=== PATIENT | female | born 1960 | race Caucasian/White ===

== ENCOUNTER 2019-05-27 09:20 | Emergency (ER) | payer BC ==
[2019-05-27] MEDS ORDERED: IBUPROFEN 600 MG TABLET (FP) PO ONE ×2 (09:31→09:49)
--- NOTE | 2019-05-27 09:38 | PDOC ---
History of Present Illness - General History Source: Patient Exam Limitations: No Limitations - History of Present Illness Initial Comments: 05/27/19 09:32 58y F with PMH of Osteoporosis, PTSD presenting to ED with complaints of R foot pain s/p fall last night. Patient says she was going down the steps when she missed the last step and injured the R foot and fell. Denies LOC or hitting her head. She states that she has pain when bearing weight on the R foot and with inversion. She has broken the same foot before when she fell down steps approx. 20y ago. She denies numbness/tingling, weakness, back pain, hip pain, knee pain , neck pain, chest pain, sob, n/v. 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 PMH: see hpi PSH: Meds: Proventil, estrogen, Cymbalta Allergies: nkda <Manuela Roberson - Last Filed: 05/27/19 10:52> <Ginette Rice - Last Filed: 05/27/19 11:03> - General Chief Complaint: Injury Stated Complaint: RIGHT FOOT INJURY Time Seen by Provider: 05/27/19 09:30 Past History - Past Medical History COPD: No HTN: Yes Psychiatric Problems: Yes (anxiety) - Immunization History Td Vaccination: Yes Immunization Up to Date: Yes - Psycho Social/Smoking Cessation Hx Smoking Status: No Smoking History: Never smoked Have you smoked in the past 12 months: No Number of Cigarettes Smoked Daily: 0 Hx Alcohol Use: No <Manuela Roberson - Last Filed: 05/27/19 10:52> <Ginette Rice - Last Filed: 05/27/19 11:03> - Past Medical History Allergies/Adverse Reactions: Allergies Allergy/AdvReac Type Severity Reaction Status Date / Time No Known Allergies Allergy Verified 05/27/19 09:33 Home Medications: Ambulatory Orders Estradiol [Minivelle] 1 each TD Q48H 10/26/14 Progesterone, Micronized [Progesterone] 100 mg PO HS capsule 10/26/14 Review of Systems - Review of Systems Constitutional: No: Symptoms Reported HEENTM: No: Symptoms Reported Respiratory: No: Symptoms reported Cardiac (ROS): No: Symptoms Reported ABD/GI: No: Symptoms Reported Musculoskeletal: Yes: See HPI Integumentary: No: Symptoms Reported Neurological: No: Symptoms reported <Manuela Roberson - Last Filed: 05/27/19 10:52> *Physical Exam - Physical Exam General Appearance: Yes: Nourished, Appropriately Dressed. No: Apparent Distress HEENT: positive: EOMI, Normal Voice. negative: Scleral Icterus (R), Scleral Icterus (L) Neck: positive: Trachea midline, Supple Vascular Pulses: Dorsalis-Pedis (R): 2+, Doralis-Pedis (L): 2+ Musculoskeletal: positive: Other (tenderness at base of 5th metatarsal. No malleolar tenderness). negative: Decreased Range of Motion Extremity: positive: Normal Capillary Refill. 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 NML intact, Fully Oriented, Alert, Normal Mood/ Affect, Normal Response, Motor Strength 5/5 <Manuela Roberson - Last Filed: 05/27/19 10:52> - Vital Signs Last Vital Signs Temp Pulse Resp BP Pulse Ox 98.6 F 84 16 154/95 98 05/27/19 09:30 05/27/19 09:30 05/27/19 09:30 05/27/19 09:30 05/27/19 09:30 <Ginette Rice - Last Filed: 05/27/19 11:03> ED Treatment Course - RADIOLOGY Radiology Studies Ordered: Category Date Time Status ANKLE & FOOT-RIGHT* [RAD] Stat Radiology 05/27/19 09:31 Ordered <Manuela Roberson - Last Filed: 05/27/19 10:52> - Medications Given in the ED: ED Medications Discontinued Medications Generic Name Dose Route Start Last Admin Trade Name Freq PRN Reason Stop Dose Admin Ibuprofen 600 mg 05/27/19 09:31 05/27/19 09:50 Motrin - PO 05/27/19 09:32 600 mg ONCE ONE Administration <Ginette Rice - Last Filed: 05/27/19 11:03> Medical Decision Making - Medical Decision Making 05/27/19 09:36 58y F presenting with R foot pain s/p fall. Has 5th metatarsal tenderness and pain with passive dorsiflexion and passive inversion. slight swelling to R 5th metatarsal base. likely fracture v. sprain. will obtain xray of R foot and ankle ibuprofen for pain. 05/27/19 10:52 oblique fracture of 5th metatarsal. patient made aware, will provide hard sole shoe, has orthopedist to follow up with. given return precautions and dc instructions. pt agrees to plan dispo: home <Manuela Roberson - Last Filed: 05/27/19 10:52> Discharge - Discharge Information Problems reviewed: Yes - Admission No <Manuela Roberson - Last Filed: 05/27/19 10:52> <Ginette Rice - Last Filed: 05/27/19 11:03> - Discharge Information Clinical Impression/Diagnosis: Fracture of 5th metatarsal Qualifiers: Encounter type: initial encounter Fracture type: closed Fracture alignment: nondisplaced Laterality: right Qualified Code(s): S92.354A - Nondisplaced fracture of fifth metatarsal bone, right foot, initial encounter for closed fracture Condition: Good Disposition: HOME - Follow up/Referral Referrals: Cosme Salazar MD [Primary Care Provider] - Zander Cifuentes MD [Staff Physician] - - Patient Discharge Instructions Patient Printed Discharge Instructions: DI for Foot Fracture Additional Instructions: You were seen in the emergency room today for right foot pain. There is a fracture of the 5th metatarsal (little toe). I recommend wearing a hard sole shoe until you see your orthopedist. Please try to make an appointment next week. Bear weight as tolerated. You cant take ibuprofen or tylenol as needed for the pain. Come back to the emergency room if you have numbness in the toes, are unable to move your toes, are unable to walk or if any new or concerning symptom develops. Thank you - Post Discharge Activity
[2019-05-27 09:41] VITALS: BP 154/95; PULSE 84; TEMP 98.6; BMI 24.6
--- NOTE | 2019-05-27 09:52 | PDOC ---
Attending Attestation - Resident Resident Name: Manuela Roberson - ED Attending Attestation I have performed the following: I have examined & evaluated the patient, The case was reviewed & discussed with the resident, I agree w/resident's findings & plan - HPI HPI: 05/27/19 09:48 58y F with PMH of Osteoporosis, PTSD presenting to ED with complaints of R foot pain s/p fall last night. Patient says she was going down the steps when she missed the last step and injured the R foot and fell. No LOC or hitting her head. has injured the same foot after fall ~20 years ago. - Physicial Exam PE: 05/27/19 09:51 General: NAD, well appearing Abdomen: soft, no tenderness, nondistended Vascular: 2+ DP pulses symmetric and equal. Back: no midline tenderness, no stepoffs, FROM MSK: soft compartments, Cap refill <2 sec. Proximal and distal strength 5/5, equal and symmetric. Plantar flexion and dorsiflexion 5/5. FROM. Sensation grossly intact to light touch. +right lateral foot at 5th metatarsal tender to palp, mild ecchymosis and tenderness/swelling noted. Neuro: alert, no focal neurologic deficits Skin: color normal color, warm and well perfused. Cap refill <2 sec. 05/27/19 11:02 - Medical Decision Making 05/27/19 09:51 Vital Signs Temp Pulse Resp BP Pulse Ox 98.6 F 84 16 154/95 98 05/27/19 09:30 05/27/19 09:30 05/27/19 09:30 05/27/19 09:30 05/27/19 09:30 VS reviewed, wnl given analgesia ddx foot/metatarsal fx, dislocation, bucio fx, lisfranc, contusion, sprain, ankle fx. Xray right foot with distal 5th metatarsal oblique fracture. ankle with normal joint space alignment, no acute fx or dislocation. Discussed results with patient. JEWELL wrap for comfort. hard sole shoe. Rest ice and elevation. Pain control with OTC meds including motrin/tylenol as needed every 6 hours; no narcotics needed. Ortho followup provided she sees Dr Dolan. Crutches to assist with ambulation, WBAT. Please return to ED for increased pain, weakness, numbness/tingling, fall prevention and safety advised 05/27/19 09:52 05/27/19 10:56 05/27/19 11:02
== END 2019-05-27 11:02 | disposition home or self-care (01) ==
LOC: FER 09:20
DX: S92.354A Nondisplaced fracture of fifth metatarsal bone, right foot, initial encounter for closed fracture (principal); W10.8XXA Fall (on) (from) other stairs and steps, initial encounter; Y93.89 Activity, other specified; Y92.89 Other specified places as the place of occurrence of the external cause; F41.9 Anxiety disorder, unspecified; I10 Essential (primary) hypertension; M81.0 Age-related osteoporosis without current pathological fracture
CPT/HCPCS: 73610-TC-RT-FY; 73630-TC-RT-FY; 99282-25

== ENCOUNTER 2019-08-29 01:17 | Emergency (ER) | payer BC ==
[2019-08-29 01:26] VITALS: BP 151/101; PULSE 73; TEMP 97.7; BMI 24.9
[2019-08-29] MEDS ORDERED: KETOROLAC TROMETHAMINE 60 MG/2 ML VIAL IM ONE (01:34)
[2019-08-29] MEDS ORDERED: KETOROLAC TROMETHAMINE 60 MG/2 ML VIAL ONE (01:35)
--- NOTE | 2019-08-29 01:37 | PDOC ---
History of Present Illness - General Chief Complaint: Pain Stated Complaint: B/L HIP PAIN Time Seen by Provider: 08/29/19 01:34 - History of Present Illness Initial Comments: 08/29/19 06:11 nontraumatic b/l hip pain and wrist and ankle swelling Timing/Duration: 4-6 hours Severity: moderate Modifying Factors: worse with: medication Associated Symptoms: denies: cough, fever/chills, nausea/vomiting, rash, shortness of breath Past History - Past Medical History Allergies/Adverse Reactions: Allergies Allergy/AdvReac Type Severity Reaction Status Date / Time No Known Allergies Allergy Verified 05/27/19 09:33 Home Medications: Ambulatory Orders Estradiol [Minivelle] 1 each TD Q48H 10/26/14 Progesterone, Micronized [Progesterone] 100 mg PO HS capsule 10/26/14 Escitalopram Oxalate [Lexapro -] 5 mg PO DAILY 08/29/19 Meloxicam 7.5 mg PO DAILY #30 tablet 08/29/19 COPD: No HTN: Yes Psychiatric Problems: Yes (anxiety) - Immunization History Td Vaccination: Yes Immunization Up to Date: Yes - Psycho Social/Smoking Cessation Hx Smoking Status: No Smoking History: Never smoked Have you smoked in the past 12 months: No Number of Cigarettes Smoked Daily: 0 Hx Alcohol Use: No Drug/Substance Use Hx: No Review of Systems - Review of Systems All Other Systems: Reviewed and Negative *Physical Exam - Vital Signs Last Vital Signs Temp Pulse Resp BP Pulse Ox 97.7 F 73 16 151/101 H 96 08/29/19 01:19 08/29/19 01:19 08/29/19 01:19 08/29/19 01:19 08/29/19 01:19 - Physical Exam General Appearance: Yes: Nourished, Appropriately Dressed HEENT: positive: Normal Voice. negative: Scleral Icterus (R), Scleral Icterus ( L) Neck: negative: Lymphadenopathy (R), Lymphadenopathy (L) Respiratory/Chest: positive: Lungs Clear Cardiovascular: positive: Regular Rhythm Gastrointestinal/Abdominal: positive: Normal Bowel Sounds Lymphatic: negative: Adenopathy Musculoskeletal: positive: Normal Inspection Extremity: positive: Normal Capillary Refill Integumentary: positive: Normal Color Neurologic: positive: Motor Strength 5/5. negative: Numbness ED Treatment Course - LABORATORY CBC & Chemistry Diagram: 08/29/19 01:45 08/29/19 01:45 Medical Decision Making - Medical Decision Making 08/29/19 06:12 msk hip pain without bony tenderness likely muscle strain labs reviewed--mild azotemia--encourage fluids elevated BP--diet, exercise; pcp fu for recheck Discharge - Discharge Information Problems reviewed: Yes Clinical Impression/Diagnosis: Myalgia Condition: Stable Disposition: HOME - Additional Discharge Information Prescriptions: Meloxicam 7.5 mg PO DAILY #30 tablet - Follow up/Referral Referrals: Cosme Salazar MD [Primary Care Provider] - - Patient Discharge Instructions Patient Printed Discharge Instructions: DI for Muscle Strain - Post Discharge Activity
[2019-08-29 02:49] LABS: BASO % 0.1 % (0-2.0); EOS % 1.3 % (0-4.5); HEMATOCRIT 43.4 % (32.4-45.2); HEMOGLOBIN 14.3 GM/dL (10.7-15.3); MCH 29.5 pg (25.7-33.7); MCHC 32.9 g/dl (32.0-36.0); MEAN CELL VOLUME 89.7 fl (80-96); MEAN PLT VOLUME 8.9 fl (7.5-11.1); MONO % 9.7 % (3.8-10.2); NEUT % 49.9 % (42.8-82.8); PLATELET COUNT 215 K/MM3 (134-434); RBC 4.84 M/mm3 (3.60-5.2); RDW 13.8 % (11.6-15.6); WHITE BLOOD COUNT 5.7 K/mm3 (4.0-10.0)
[2019-08-29 03:14] LABS: ANION GAP 6 MMOL/L (8-16); BLOOD UREA NITROGEN 24.2 mg/dL (7-18); CALCIUM 9.1 mg/dL (8.5-10.1); CHLORIDE 106 mmol/L (98-107); CO2 27 mmol/L (21-32); CREATININE 0.7 mg/dL (0.55-1.3); GLUCOSE,RANDOM 141 mg/dL (74-106); POTASSIUM 3.9 mmol/L (3.5-5.1); SODIUM 140 mmol/L (136-145)
== END 2019-08-29 01:56 | disposition home or self-care (01) ==
LOC: FER 01:17
PROC: 3E0233Z Introduction of Anti-inflammatory into Muscle, Percutaneous Approach (ICD-10-PCS; principal; 2019-08-29)
DX: M79.10 Myalgia, unspecified site (principal); F41.9 Anxiety disorder, unspecified; I10 Essential (primary) hypertension
CPT/HCPCS: 36415; 80048; 82550; 84484; 85025; 85651; 86140; 99283-25

== ENCOUNTER 2021-04-21 20:53 | Emergency (ER) | payer BC ==
[2021-04-21 21:16] VITALS: BP 158/98; PULSE 98; TEMP 98.7; BMI 24.2
[2021-04-21] MEDS ORDERED: ONDANSETRON *ODT* 4 MG TABLET SL ONE (21:27)
[2021-04-21] MEDS ORDERED: ONDANSETRON *ODT* 4 MG TABLET ONE (21:29)
== END 2021-04-21 22:09 | disposition home or self-care (01) ==
LOC: FER 20:53
DX: F12.90 Cannabis use, unspecified, uncomplicated (principal)
CPT/HCPCS: 93005; 99283-25; Q0162